=== PATIENT | female | born 1995 | race Caucasian/White ===

== ENCOUNTER 2022-10-29 16:00 | Emergency (ER) | payer OTHER, SELFPAY | END 2022-10-29 16:45 | disposition home or self-care (01) | LOC: EXPBETH 18:22 | PROVIDERS: Emergency Provider Nurse Practitioner Family; PCP Family Medicine | DX: L23.7 Allergic contact dermatitis due to plants, except food (principal) | CPT/HCPCS: 99213; G0463 ==